=== PATIENT | female | born 1965 | race Caucasian/White ===

== ENCOUNTER 2017-04-01 18:02 | Emergency (ER) | payer SELFPAY ==
[~2017-04-01] VITALS: Ht 167.6 cm; Wt 56.0 kg
[~2017-04-01 18:02] MED LIST: HYDR25 PO; PRED20 PO
[2017-04-01 18:04] VITALS: BP 188/86; PULSE 88; RESP 18; TEMP 97.8; O2SAT 100
--- NOTE | 2017-04-01 18:53 | RADRPT ---
EXAM DATE/TIME: 04/01/2017 18:32 [facility] COMPARISON: No previous studies available for comparison. INDICATIONS : Right Shoulder pain, Post fall MEDICAL HISTORY : None. SURGICAL HISTORY : None. ENCOUNTER: Initial ACUITY: 1 day PAIN SCORE: 9/10 LOCATION: Right upper extremity FINDINGS: There are hypertrophic changes of mild severity at the acromioclavicular joint. There is severe narro wing of the glenohumeral joint with sclerosis on both sides of the joint, and impingement type change s at the humeral head greater tuberosity with subcortical cysts seen. CONCLUSION: Degenerative changes. Ricardo Ann MD on April 01, 2017 at 18:51 Board Certified Radiologist. This report was verified electronically.
--- NOTE | 2017-04-01 18:53 | RADRPT ---
EXAM DATE/TIME: 04/01/2017 18:28 [facility] COMPARISON: No previous studies available for comparison. INDICATIONS : Patient fell, complains of left hip pain MEDICAL HISTORY : None. SURGICAL HISTORY : None. ENCOUNTER: Initial ACUITY: 1 day PAIN SCORE: 9/10 LOCATION: Left pelvis FINDINGS: There is severe joint space narrowing of both hips. Subchondral sclerosis and subchondral cystic arciniega ges are noted. No fractures. Normal bone density. CONCLUSION: No acute disease. Ricardo Ann MD on April 01, 2017 at 18:51 Board Certified Radiologist. This report was verified electronically.
[2017-04-01] MEDS ORDERED: IBUP-232 PO (19:16)
[2017-04-01] MEDS ORDERED: LURA20TA PO (19:17)
--- NOTE | 2017-04-01 19:17 | PD ---
HPI . Fall Chief Complaint: Fall Time Seen by Provider: 18:57 Travel History International Travel<30 days: No Contact w/Intl Traveler<30days: No Traveled to known affect area: No History of Present Illness HPI Patient presents for evaluation of injury sustained in a trip and fall which occurred 2 days ago. She struck the right side of her face on a can that was on the floor. She also injured her right shoulder and her left hip. She states that the pain has gotten progressively worse and now rates it 10/10. Pain is exacerbated by movement. Pain has been unrelieved by Tylenol. PFSH Past Medical History ?: Not Past Surgical History Gynecologic Surgery: Yes (LAPAROSCOPY) Joint Replacement: Yes (LT MONTRELL REPAIR. FACILIAL HERNIA REPAIR LT CALF) Mastectomy: No (BREAST AUGMENTATION) Social History Alcohol Use: Yes (4 PACK/WEEK) Tobacco Use: Yes (1PPD) Substance Use: Yes (WEED) Allergies-Medications (Allergen,Severity, Reaction): Coded Allergies: penicillin G (Unverified Allergy, Severe, 04/01/17) codeine (Unverified Adverse Reaction, Severe, 04/01/17) Reported Meds & Prescriptions Reported Meds & Active Scripts Active Reported Latuda (Lurasidone) 20 Mg Tab 20 Mg PO DAILY Ibuprofen 600 Mg Tab 600 Mg PO Q6H PRN Review of Systems Except as stated in HPI: all other systems reviewed are Neg Physical Exam Narrative GENERAL: Awake and alert and in no acute distress. SKIN: Warm and dry. She has some bruising on the right side of her face. HEAD: Normocephalic/atraumatic. Right cheek tenderness. No deformity. Teeth occlude normally. EYES: Pupils are equal. Extraocular movements are intact. ENT: TMs shiny and hobson with good light reflexes. NECK: Normal range of motion. Supple. CARDIOVASCULAR: Regular rate and rhythm. RESPIRATORY: Nonlabored respirations. MUSCULOSKELETAL: Right shoulder is diffusely tender. Passive range of motion exacerbates her pain. She is distally neurovascularly intact. Left hip is also diffusely tender. She resists all range of motion of the left hip. She is distally neurovascularly intact. NEUROLOGICAL: Nonfocal. PSYCHIATRIC: Appropriate mood and affect. Data Data Last Documented VS Vital Signs Date Time Temp Pulse Resp B/P (MAP) Pulse Ox O2 Delivery O2 Flow Rate FiO2 04/01/17 18:04 97.8 88 18 188/86 (120) 100 Room Air Orders Orders Hip, Uni(Ap&Lat) W Ap Pelvis (04/01/17 18:10) Shoulder, Complete (>2vws) (04/01/17 18:10) Acetamin-Hydrocod 325-5 Mg ([place] 5-325 (04/01/17 19:30) Ed Discharge Order (04/01/17 19:17) MDM Medical Decision Making Medical Screen Exam Complete: Yes Emergency Medical Condition: Yes Differential Diagnosis Differential diagnosis of extremity trauma includes but is not limited to fracture, sprain or strain, dislocation, contusion Narrative Course This patient presents for the evaluation of injury sustained in a trip and fall 2 days ago. She has contusions of the right side of her face. She also has right shoulder and left hip pain. X-rays of the shoulder and hip were obtained and were independently viewed by me. Last Impressions Shoulder X-Ray 04/01/171809 Signed Impressions: Service Date/Time: Saturday, April 01, 2017 18:32 - CONCLUSION: Degenerative changes. Ricardo Ann MD Hip and Pelvis X-Ray 04/01/171809 Signed Impressions: Service Date/Time: Saturday, April 01, 2017 18:28 - CONCLUSION: No acute disease. Ricardo Ann MD I will give the patient a prescription for Ultram. Diagnosis Primary Impression: Facial contusion Qualified Codes: S00.83XA - Contusion of other part of head, initial encounter Additional Impressions: Shoulder injury Qualified Codes: S49.91XA - Unspecified injury of right shoulder and upper arm , initial encounter Hip injury Qualified Codes: S79.912A - Unspecified injury of left hip, initial encounter Patient Instructions: Facial Contusion (ED), General Instructions, Hip Pain (ED ), Narcotic given in the ED, Shoulder Pain (ED) Med/Other Pt SpecificInfo: Prescription(s) given Scripts Tramadol (Ultram) 50 Mg Tab 50 MG PO Q4H Y for PAIN, #12 TAB 0 Refills Prov: Awa Sanders MD 04/01/17 Disposition: 01 DISCHARGE HOME Condition: Stable Awa Sanders MD Apr 01, 2017 19:17
[2017-04-01] MEDS ORDERED: TRAM50 PO (19:19)
[2017-04-01] MEDS ORDERED: ACETAMINOPHEN/HYDROcodone 325 MG/5 MG TAB PO ONE (19:30)
== END 2017-04-01 19:42 | disposition home or self-care (01) ==
LOC: NEPD 18:02
DX: S00.83XA Contusion of other part of head, initial encounter (principal); S49.91XA Unspecified injury of right shoulder and upper arm, initial encounter; S79.912A Unspecified injury of left hip, initial encounter; F17.200 Nicotine dependence, unspecified, uncomplicated; W01.0XXA Fall on same level from slipping, tripping and stumbling without subsequent striking against object, initial encounter; Z88.0 Allergy status to penicillin; Z88.5 Allergy status to narcotic agent; Z79.899 Other long term (current) drug therapy
CPT/HCPCS: 73030; 73502; 99284

== ENCOUNTER 2017-06-14 02:48 | Inpatient (IN) | payer SELFPAY ==
[~2017-06-14] VITALS: Ht 170.2 cm; Wt 65.2 kg
[2017-06-14] VITALS (12 sets, daily range): BP systolic 133–162; BP diastolic 74–82; PULSE 95–114; RESP 17–22; TEMP 98.3–102.1; O2SAT 90–100
[~2017-06-14 02:48] MED LIST changes: -HYDR25 PO; +IBUP-232 PO; +LURA20TA PO; -PRED20 PO; +TRAM50 PO
[2017-06-14] MEDS ORDERED: SODIUM CHLOR 0.9% 1000 ML INJ 1,000 ML IV SCH (03:04)
--- NOTE | 2017-06-14 03:10 | PD ---
HPI Chief Complaint: Abdominal Pain Time Seen by Provider: 03:04 Travel History International Travel<30 days: No Contact w/Intl Traveler<30days: No Traveled to known affect area: No History of Present Illness HPI 52-year-old female presents to the emergency department by EMS transport from home for severe abdominal pain. Patient states she's had left lower quadrant abdominal pain for 3 days and then today has had increased severe intractable abdominal pain across her entire abdomen. Patient's had nausea vomiting without hematemesis coffee-ground emesis or melena. Patient states she attempted to give herself an enema and used a douching device and then shortly thereafter has had increasing abdominal pain. No reported bowel movement. PFSH Past Medical History Narrative Medical Arthritis depression joint surgery; exploratory laparotomy; tobacco use alcohol use substance use; nursing notes reviewed Arthritis: Yes Depression: Yes Tetanus Vaccination: Unknown Influenza Vaccination: No ?: Not Menopausal: Yes : 0 Past Surgical History Gynecologic Surgery: Yes (LAPAROSCOPY) Joint Replacement: Yes (LT MONTRELL REPAIR. FACILIAL HERNIA REPAIR LT CALF) Social History Alcohol Use: Yes (4 PACK/WEEK) Tobacco Use: Yes (1/2PPD) Substance Use: Yes (WEED) Allergies-Medications (Allergen,Severity, Reaction): Coded Allergies: penicillin G (Unverified Allergy, Severe, 04/01/17) codeine (Unverified Adverse Reaction, Severe, 04/01/17) Reported Meds & Prescriptions Reported Meds & Active Scripts Active Reported Ibuprofen 600 Mg Tab 600 Mg PO Q6H PRN Review of Systems Except as stated in HPI: all other systems reviewed are Neg Physical Exam Narrative GENERAL: Well-developed thin female in obvious distress no respiratory distress SKIN: Warm and dry. HEAD: Normocephalic. EYES: No scleral icterus. No injection or drainage. NECK: Supple, trachea midline. No JVD or lymphadenopathy. CARDIOVASCULAR: Regular rate and rhythm without murmurs, gallops, or rubs. RESPIRATORY: Breath sounds equal bilaterally. No accessory muscle use. GASTROINTESTINAL: Abdomen soft, diffusely tender with voluntary guarding and rebound, nondistended. MUSCULOSKELETAL: No cyanosis, or edema. BACK: Nontender without obvious deformity. No CVA tenderness. Data Data Last Documented VS Vital Signs Date Time Temp Pulse Resp B/P (MAP) Pulse Ox O2 Delivery O2 Flow Rate FiO2 06/14/17 05:08 108 154/82 (106) 06/14/17 03:49 22 99 Room Air 06/14/17 02:54 98.3 Orders Orders Complete Blood Count With Diff (06/14/17 03:04) Comprehensive Metabolic Panel (06/14/17 03:04) Lipase (06/14/17 03:04) Lactic Acid (06/14/17 03:04) Prothrombin Time / Inr (Pt) (06/14/17 03:04) Act Partial Throm Time (Ptt) (06/14/17 03:04) Urinalysis - C+S If Indicated (06/14/17 03:04) Ct Abd/Pel W Iv Contrast(Rout) (06/14/17 03:04) Iv Access Insert/Monitor (06/14/17 03:04) Ecg Monitoring (06/14/17 03:04) Oximetry (06/14/17 03:04) Ondansetron Inj (Zofran Inj) (06/14/17 03:15) Sodium Chlor 0.9% 1000 Ml Inj (Ns 1000 M (06/14/17 03:04) Sodium Chloride 0.9% Flush (Ns Flush) (06/14/17 03:15) Electrocardiogram (06/14/17 03:04) Chest, Single Ap (06/14/17 03:04) Hydromorphone Pf Inj (Dilaudid Pf Inj) (06/14/17 03:15) Blood Culture (06/14/17 03:06) Metronidazole 500 Mg Inj (Flagyl 500 Mg (06/14/17 03:15) Ciprofloxacin 400 Mg Premix (Cipro 400 M (06/14/17 03:15) Iohexol 350 Inj (Omnipaque 350 Inj) (06/14/17 04:50) Hydromorphone Pf Inj (Dilaudid Pf Inj) (06/14/17 05:15) Labs Laboratory Tests Test 06/14/17 03:19 06/14/17 03:29 06/14/17 04:05 06/14/17 05:24 White Blood Count 11.8 TH/MM3 Red Blood Count 4.85 MIL/MM3 Hemoglobin 12.7 GM/DL Hematocrit 38.2 % Mean Corpuscular Volume 78.8 FL Mean Corpuscular Hemoglobin 26.2 PG Mean Corpuscular Hemoglobin Concent 33.3 % Red Cell Distribution Width 17.1 % Platelet Count 523 TH/MM3 Mean Platelet Volume 6.3 FL Neutrophils (%) (Auto) 88.4 % Lymphocytes (%) (Auto) 6.9 % Monocytes (%) (Auto) 4.2 % Eosinophils (%) (Auto) 0.0 % Basophils (%) (Auto) 0.5 % Neutrophils # (Auto) 10.4 TH/MM3 Lymphocytes # (Auto) 0.8 TH/MM3 Monocytes # (Auto) 0.5 TH/MM3 Eosinophils # (Auto) 0.0 TH/MM3 Basophils # (Auto) 0.1 TH/MM3 CBC Comment DIFF FINAL Differential Comment Blood Urea Nitrogen 11 MG/DL Creatinine 1.14 MG/DL Random Glucose 151 MG/DL Total Protein 9.5 GM/DL Albumin 3.3 GM/DL Calcium Level 9.0 MG/DL Alkaline Phosphatase 172 U/L Aspartate Amino Transf (AST/SGOT) 25 U/L Alanine Aminotransferase (ALT/SGPT) 24 U/L Total Bilirubin 0.5 MG/DL Sodium Level 133 MEQ/L Potassium Level 3.7 MEQ/L Chloride Level 100 MEQ/L Carbon Dioxide Level 23.8 MEQ/L Anion Gap 9 MEQ/L Estimat Glomerular Filtration Rate 50 ML/MIN Lipase 76 U/L Lactic Acid Level 1.6 mmol/L Prothrombin Time 11.2 SEC Prothromb Time International Ratio 1.1 RATIO Activated Partial Thromboplast Time 29.6 SEC MDM Medical Decision Making Medical Screen Exam Complete: Yes Emergency Medical Condition: Yes Medical Record Reviewed: Yes Interpretation(s) Portable chest x-ray: No subdiaphragmatic free air EKG sinus tachycardia rate [address] elevation or injury pattern change noted Last Impressions Chest X-Ray 06/14/17 0304 Signed Impressions: Service Date/Time: June 03:09 - CONCLUSION: 1. Mild basilar atelectasis. No effusion or pneumothorax. Deniz Manriquez MD CBC & BMP Diagram 06/14/17 03:19 Total Protein 9.5 H, Albumin 3.3 L, Calcium Level 9.0, Alkaline Phosphatase 172 H, Aspartate Amino Transf (AST/SGOT) 25, Alanine Aminotransferase (ALT/SGPT) 24 , Total Bilirubin 0.5 Vital Signs Date Time Temp Pulse Resp B/P (MAP) Pulse Ox O2 Delivery O2 Flow Rate FiO2 06/14/17 05:08 108 154/82 (106) 06/14/17 03:49 104 22 162/78 (106) 99 Room Air 06/14/17 03:37 98 Room Air 06/14/17 02:54 98.3 110 22 135/75 (95) 100 lactic acid: 1.6 CT abd/pel: CONCLUSION: 1. Mild mural thickening and dilatation of multiple small bowel loops. Findings could represent an enteritis. There are air-fluid levels and some distal decompression. Cannot exclude a very low-grade partial obstruction. 2. The no evidence for diverticulitis. No obstructive uropathy. Appendix normal. Deniz Manriquez MD on June 14, 2017 at 5:14 Board Certified Radiologist. This report was verified electronically. Differential Diagnosis Abdominal pain, diverticulitis, abdominal abscess, viscus perforation, sepsis Narrative Course Patient placed on bottle feeder IV access obtained specimens collected and sent for resulting patient administered 1 L normal saline bolus Dilaudid 0.5 mg IV Zofran 4 mg IV stat upright chest x-ray to evaluate for subdiaphragmatic free air patient will be given Flagyl 500 mg IV times one dose as well as Cipro 40 mg IV times one dose patient is allergic to penicillin. Sepsis Criteria SIRS Criteria (2 or more): Heart rate over 90, RR > 20 or PaCO2 < 32 Physician Communication Physician Communication call placed to [facility] service Diagnosis Primary Impression: Enteritis Admitting Information Admitting Physician Requests: Observation Shantel Jean-Baptiste MD Jun 14, 2017 03:10
[2017-06-14] MEDS ORDERED: metroNIDAZOLE 500 MG INJ 100 ML IV ONE (03:15)
[2017-06-14] MEDS ORDERED: HYDROmorphone HCL PF 2 MG/ML VIAL IV PUSH ONE ×2 (03:15→05:15)
[2017-06-14] MEDS ORDERED: ONDANSETRON HCL 4 MG/2 ML VIAL IVP ONE (03:15)
[2017-06-14] MEDS ORDERED: SODIUM CHLORIDE 0.9% FLUSH 10 ML FLUSH IV FLUSH PRN ×2 (03:15→05:45)
[2017-06-14] MEDS ORDERED: CIPROFLOXACIN 400 MG PREMIX 200 ML IV ONE (03:15)
[2017-06-14 03:41] LABS: AUTOMATED NEUTROPHIL # 10.4 TH/MM3 (1.8-7.7); BASOPHIL # 0.1 TH/MM3 (0-0.2); BASOPHIL % 0.5 % (0.0-2.0); HEMATOCRIT 38.2 % (35.0-46.0); HEMOGLOBIN 12.7 GM/DL (11.6-15.3); LYMPH % 6.9 % (9.0-44.0); LYMPHOCYTE # 0.8 TH/MM3 (1.0-4.8); MEAN CELL VOLUME 78.8 FL (80.0-100.0); MEAN CORPUSCULAR HEMOGLOBIN 26.2 PG (27.0-34.0); MEAN CORPUSCULAR HGB CONC 33.3 % (32.0-36.0); MEAN PLATELET VOLUME 6.3 FL (7.0-11.0); MONO % 4.2 % (0.0-8.0); MONOCYTE # 0.5 TH/MM3 (0-0.9); NEUT % 88.4 % (16.0-70.0); PLATELET COUNT 523 TH/MM3 (150-450); RED BLOOD COUNT 4.85 MIL/MM3 (4.00-5.30); RED CELL DISTRIBUTION WIDTH 17.1 % (11.6-17.2); WHITE BLOOD COUNT 11.8 TH/MM3 (4.0-11.0)
--- NOTE | 2017-06-14 03:50 | RADRPT ---
EXAM DATE/TIME: 06/14/2017 03:09 [facility] COMPARISON: No previous studies available for comparison. INDICATIONS : Lower chest pain. MEDICAL HISTORY : None. SURGICAL HISTORY : None. ENCOUNTER: Initial ACUITY: 3 days PAIN SCORE: 1/10 LOCATION: Bilateral lower chest FINDINGS: A single view of the chest demonstrates the lungs to be symmetrically aerated without evidence of mas s, infiltrate or effusion. Mild basilar atelectasis. The cardiomediastinal contours are unremarkable. Osseous structures are intact. CONCLUSION: 1. Mild basilar atelectasis. No effusion or pneumothorax. Deniz Manriquez MD on June 14, 2017 at 3:46 Board Certified Radiologist. This report was verified electronically.
[2017-06-14 04:04] LABS: ALBUMIN 3.3 GM/DL (3.4-5.0); ALT (GPT) 24 U/L (10-53); AST (GOT) 25 U/L (15-37); BICARBONATE 23.8 MEQ/L (21.0-32.0); BLOOD UREA NITROGEN 11 MG/DL (7-18); CHLORIDE 100 MEQ/L (98-107); CREATININE 1.14 MG/DL (0.50-1.00); GLOMERULAR FILTRATION RATE 50 ML/MIN (>89); GLUCOSE,RANDOM 151 MG/DL (74-106); SODIUM (NA) 133 MEQ/L (136-145)
[2017-06-14 04:07] LABS: ALKALINE PHOSPHATASE 172 U/L (45-117); TOTAL BILIRUBIN ADULT 0.5 MG/DL (0.2-1.0); TOTAL PROTEIN 9.5 GM/DL (6.4-8.2)
[2017-06-14 04:35] LABS: INTERNATIONAL NORMALIZED RATIO 1.1 RATIO; PROTHROMBIN TIME - PATIENT 11.2 SEC (9.8-11.6)
[2017-06-14] MEDS ORDERED: IOHEXOL 350 MG/ML 10 ML VIAL (for RAD DIAG) IVCONTRAST ONE (04:50)
--- NOTE | 2017-06-14 05:24 | RADRPT ---
EXAM DATE/TIME: 06/14/2017 04:43 [facility] COMPARISON: No previous studies available for comparison. INDICATIONS : Left lower quadrant pain. Constipation. IV CONTRAST: 100 cc Omnipaque 350 (iohexol) IV ORAL CONTRAST: No oral contrast ingested. RADIATION DOSE: 9.99 CTDIvol (mGy) MEDICAL HISTORY : None SURGICAL HISTORY : None. ENCOUNTER: Initial ACUITY: 2 days PAIN SCALE: 10/10 LOCATION: Left lower quadrant TECHNIQUE: Volumetric scanning of the abdomen and pelvis was performed. Using automated exposure control and ad justment of the mA and/or kV according to patient size, radiation dose was kept as low as reasonably achievable to obtain optimal diagnostic quality images. DICOM format image data is available electro nically for review and comparison. FINDINGS: There is dependent density at the bases, right and left, probably atelectasis. Bilateral breast impla nts with intracapsular rupture on the right. No acute findings in the liver, spleen, adrenals, kidneys or pancreas. No calcified gallstones or donovan iary ductal dilatation. The is mild mural thickening of numerous small bowel loops mild dilatation. There is a slight caliber change distally. No acute bony abnormalities. Moderate to severe osteoarthritis of the hips. Previous healed left L3 t ransverse process fracture. Slight reversal of normal lumbar lordosis. CONCLUSION: 1. Mild mural thickening and dilatation of multiple small bowel loops. Findings could represent an en teritis. There are air-fluid levels and some distal decompression. Cannot exclude a very low-grade pa rtial obstruction. 2. The no evidence for diverticulitis. No obstructive uropathy. Appendix normal. Deniz Manriquez MD on June 14, 2017 at 5:14 Board Certified Radiologist. This report was verified electronically.
[2017-06-14] MEDS: SODIUM CHLOR 0.9% 1000 ML INJ 1,000 ML IV SCH ×3 (05:39→22:40)
[2017-06-14 05:41] LABS: BILIRUBIN, URINE NEG (NEG); BLOOD, URINE SMALL (NEG); GLUCOSE,URINE NEG (NEG); HYALINE CAST, URINE 1 /lpf (RARE); KETONE, URINE NEG (NEG); MUCUS URINE FEW /lpf (OCC); NITRITE,URINE POS (NEG); PH, URINE 6.5 (5.0-8.5); SQUAMOUS EPITHELIAL CELL URINE 1 /hpf (0-5); URINE COLOR YELLOW (YELLW/STRAW); URINE LEUKOCYTE ESTERASE LARGE (NEG)
[2017-06-14] MEDS ORDERED: ACETAMINOPHEN 325 MG TAB PO PRN (05:45)
[2017-06-14] MEDS ORDERED: MAGNESIUM HYDROXIDE SUSP 30 ML CUP PO PRN (05:45)
[2017-06-14] MEDS ORDERED: LACTULOSE SYRUP 20 GM/30 ML CUP PO PRN (05:45)
[2017-06-14] MEDS ORDERED: SENNOSIDES 8.6 MG TAB PO PRN (05:45)
[2017-06-14] MEDS ORDERED: BISACODYL 10 MG SUPP RECTAL PRN (05:45)
[2017-06-14] MEDS ORDERED: NALOXONE HCL 0.4 MG/ML AMP IV PUSH PRN (05:45)
[2017-06-14] MEDS ORDERED: LORazepam 2 MG TAB PO PRN (06:15)
[2017-06-14] MEDS ORDERED: LORazepam 2 MG/ML VIAL IV PUSH PRN ×2 (06:15)
[2017-06-14] MEDS ORDERED: FLUMAZENIL 0.5 MG/5 ML VIAL IV PUSH PRN (06:15)
--- NOTE | 2017-06-14 06:15 | HHI.HP ---
HPI Service [facility] Primary Care Physician No Primary Care Physician Admission Diagnosis acute enteritis; early partial sbo Diagnoses: Travel History International Travel<30 Days: No Contact w/Intl Traveler <30 Da: No Traveled to Known Affected Are: No History of Present Illness 52-year-old homeless female with a past medical history significant for alcohol and drug abuse presents to the emergency department for evaluation of abdominal pain. The patient reports a 3 day history of constipation. She states she woke this morning with left lower quadrant pain and requested her brother bring her a fleets enema for her constipation. She reports that the sore was out of fleets enemas so he brought her a vinegar and water douche instead. The patient used this as an enema after which she expelled a "brick pinecone" with multiple meredith. She denies any blood mixed in with the stool. Denies current jelly stools. Recent black, tarry stools. She has a history of a laparoscopic surgery to rule out endometriosis in 1991. No other abdominal surgeries. She continues to report exquisite pain, 10/10 that has now moved to her left and right upper quadrants. She denies fever/chills, chest pain, diaphoresis, nausea/vomiting. Review of Systems Except as stated in HPI: all other systems reviewed are Neg Past Family Social History Past Medical History Osteoarthritis Past Surgical History Laparoscopic surgery to rule out endometriosis Breast augmentation ACL repair Reported Medications Reported Meds & Active Scripts Active Reported Ibuprofen 600 Mg Tab 600 Mg PO Q6H PRN Allergies: Coded Allergies: penicillin G (Unverified Allergy, Severe, 04/01/17) codeine (Unverified Adverse Reaction, Severe, 04/01/17) Family History Mother with diabetes mellitus, father with CHF, both . Social History Smokes approximately a half a pack per day. Drinks alcohol "as often as possible" which usually is 1-2 beers daily. Positive marijuana. Positive crack cocaine. Denies opiate use. Physical Exam Vital Signs Vital Signs Date Time Temp Pulse Resp B/P (MAP) Pulse Ox O2 Delivery O2 Flow Rate FiO2 06/14/17 05:08 108 154/82 (106) 06/14/17 03:49 104 22 162/78 (106) 99 Room Air 06/14/17 03:37 98 Room Air 06/14/17 02:54 98.3 110 22 135/75 (95) 100 Physical Exam GENERAL: Thin, female lying in bed. Disheveled and unkempt. SKIN: No rashes, ecchymoses or lesions. Cool and dry. HEAD: Atraumatic. Normocephalic. No temporal or scalp tenderness. EYES: Pupils equal round and reactive. Extraocular motions intact. No scleral icterus. No injection or drainage. ENT: Nose without bleeding, purulent drainage or septal hematoma. Throat without erythema, tonsillar hypertrophy or exudate. Uvula midline. Airway patent. NECK: Trachea midline. No JVD or lymphadenopathy. Supple, nontender, no meningeal signs. CARDIOVASCULAR: Regular rate and rhythm without murmurs, gallops, or rubs. RESPIRATORY: Clear to auscultation. Breath sounds equal bilaterally. No wheezes , rales, or rhonchi. GASTROINTESTINAL: Abdomen soft, nondistended. Patient reports exquisite tenderness to palpation in all 4 quadrants however all abdominal muscles flexed during palpation. No hepato-splenomegaly, or palpable masses. Voluntary guarding. MUSCULOSKELETAL: Extremities without clubbing, cyanosis, or edema. No joint tenderness, effusion, or edema noted. No calf tenderness. NEUROLOGICAL: Awake and alert. Cranial nerves II through XII intact. Motor and sensory grossly within normal limits. Normal speech. Laboratory Laboratory Tests Test 06/14/17 03:19 06/14/17 03:29 06/14/17 04:05 06/14/17 05:24 White Blood Count 11.8 Red Blood Count 4.85 Hemoglobin 12.7 Hematocrit 38.2 Mean Corpuscular Volume 78.8 Mean Corpuscular Hemoglobin 26.2 Mean Corpuscular Hemoglobin Concent 33.3 Red Cell Distribution Width 17.1 Platelet Count 523 Mean Platelet Volume 6.3 Neutrophils (%) (Auto) 88.4 Lymphocytes (%) (Auto) 6.9 Monocytes (%) (Auto) 4.2 Eosinophils (%) (Auto) 0.0 Basophils (%) (Auto) 0.5 Neutrophils # (Auto) 10.4 Lymphocytes # (Auto) 0.8 Monocytes # (Auto) 0.5 Eosinophils # (Auto) 0.0 Basophils # (Auto) 0.1 CBC Comment DIFF FINAL Differential Comment Blood Urea Nitrogen 11 Creatinine 1.14 Random Glucose 151 Total Protein 9.5 Albumin 3.3 Calcium Level 9.0 Alkaline Phosphatase 172 Aspartate Amino Transf (AST/SGOT) 25 Alanine Aminotransferase (ALT/SGPT) 24 Total Bilirubin 0.5 Sodium Level 133 Potassium Level 3.7 Chloride Level 100 Carbon Dioxide Level 23.8 Anion Gap 9 Estimat Glomerular Filtration Rate 50 Lipase 76 Lactic Acid Level 1.6 Prothrombin Time 11.2 Prothromb Time International Ratio 1.1 Activated Partial Thromboplast Time 29.6 Urine Color YELLOW Urine Turbidity CLEAR Urine pH 6.5 Urine Specific [place] 1.039 Urine Protein TRACE Urine Glucose (UA) NEG Urine Ketones NEG Urine Occult Blood SMALL Urine Nitrite POS Urine Bilirubin NEG Urine Urobilinogen LESS THAN 2.0 Urine Leukocyte Esterase LARGE Urine RBC 2 Urine WBC 4 Urine Squamous Epithelial Cells 1 Urine Hyaline Casts 1 Urine Mucus FEW Microscopic Urinalysis Comment CULTURE INDICATED Date/Time Source Procedure Growth Status 06/14/17 03:35 Blood Peripheral Aerobic Blood Culture Pending Received 06/14/17 03:35 Blood Peripheral Anaerobic Blood Culture Pending Received 06/14/17 05:24 Urine Clean Catch Urine Culture Pending Received Result Diagram: 06/14/1731806/14/17318 Caprini VTE Risk Assessment Caprini VTE Risk Assessment: No/Low Risk (score <= 1) Caprini Risk Assessment Model Point Value = 1 Point Value = 2 Point Value = 3 Point Value = 5 Age 41-60 Minor surgery BMI > 25 kg/m2 Swollen legs Varicose veins or History of unexplained or recurrent spontaneous Oral contraceptives or hormone replacement Sepsis (< 1 month) Serious lung disease, including pneumonia (< 1 month) Abnormal pulmonary function Acute myocardial infarction Congestive heart failure (< 1 month) History of inflammatory bowel disease Medical patient at bed rest Age 61-74 Arthroscopic surgery Major open surgery (> 45 min) Laparoscopic surgery (> 45 min) Malignancy Confined to bed (> 72 hours) Immobilizing plaster cast Central venous access Age >= 75 History of VTE Family history of VTE Factor V Leiden Prothrombin [id number] Lupus anticoagulant Anticardiolipin antibodies Elevated serum homocysteine Heparin-induced thrombocytopenia Other congenital or acquired thrombophilia Stroke (< 1 month) Elective arthroplasty Hip, pelvis, or leg fracture Acute spinal cord injury (< 1 month) Prophylaxis Regimen Total Risk Factor Score Risk Level Prophylaxis Regimen 0-1 Low Early ambulation 2 Moderate Order ONE of the following: *Sequential Compression Device (SCD) *Heparin 5000 units SQ BID 3-4 Higher Order ONE of the following medications: *Heparin 5000 units SQ TID *Enoxaparin/Lovenox 40 mg SQ daily (WT < 150 kg, CrCl > 30 mL/min) *Enoxaparin/Lovenox 30 mg SQ daily (WT < 150 kg, CrCl > 10-29 mL/min) *Enoxaparin/Lovenox 30 mg SQ BID (WT < 150 kg, CrCl > 30 mL/min) AND/OR *Sequential Compression Device (SCD) 5 or more Highest Order ONE of the following medications: *Heparin 5000 units SQ TID (Preferred with Epidurals) *Enoxaparin/Lovenox 40 mg SQ daily (WT < 150 kg, CrCl > 30 mL/min) *Enoxaparin/Lovenox 30 mg SQ daily (WT < 150 kg, CrCl > 10-29 mL/min) *Enoxaparin/Lovenox 30 mg SQ BID (WT < 150 kg, CrCl > 30 mL/min) AND *Sequential Compression Device (SCD) Assessment and Plan Assessment and Plan Assessment/plan: 1. Intractable abdominal pain CT of the abdomen/pelvis significant for mild mucosal thickening and dilation of multiple small bowel loops, suggestive of enteritis. There are air-fluid levels and some distal decompression. Cannot exclude a very low-grade partial obstruction. Dilaudid for pain Nothing by mouth IV fluid hydration 2. YOBANY Creatinine 1.14, baseline unknown IV fluid hydration Monitor renal function 3. Alcohol abuse/polysubstance abuse/tobacco abuse Cessation counseling provided [facility] protocol FEN NPO Electrolytes: monitor and replete prn NS at 100 cc/hr Lois Skinner MD Jun 14, 2017 06:15
[2017-06-14] MEDS: HYDROmorphone HCL PF 1 MG/ML VIAL IV PUSH PRN ×4 (07:50→19:59)
[2017-06-14] MEDS: SODIUM CHLORIDE 0.9% FLUSH 10 ML FLUSH IV FLUSH SCH ×2 (07:50→19:59)
--- NOTE | 2017-06-14 08:10 | EKG ---
Date Performed: 06/14/2017 Time Performed: 03:18:20 PTAGE: 52 years EKG: SINUS TACHYCARDIA POSSIBLE RIGHT ATRIAL ENLARGEMENT LEFT ATRIAL ENLARGEMENT BORDERLINE LEFT AXIS DEVIATION POSSIBLE RIGHT VENTRICULAR CONDUCTION DELAY POSSIBLE LEFT VENTRICULAR HYPERTROPHY NON SPECIFIC T-WAVE ABNORMALITY ABNORMAL ECG NO PREVIOUS TRACING DOCTOR: Justo Starkey Interpretating Date/Time 06/14/2017 08:08:52
[2017-06-14] MEDS ORDERED: THIAMINE HCL 100 MG TAB PO SCH (09:00)
[2017-06-14] MEDS ORDERED: MULTIVITAMINS/MINERALS THERAPEUTIC TAB PO SCH (09:00)
[2017-06-14] MEDS ORDERED: FOLIC ACID 1 MG TAB PO SCH (09:00)
[2017-06-14] MEDS ORDERED: PANTOPRAZOLE SOD 20 MG DELAYED RELEASE TAB PO SCH (10:00)
[2017-06-14] MEDS: CIPROFLOXACIN 400 MG PREMIX 200 ML IV SCH (13:58)
[2017-06-14] MEDS: LORazepam 1 MG TAB PO PRN ×2 (15:29→20:16)
[2017-06-14] MEDS: metroNIDAZOLE 500 MG INJ 100 ML IV SCH ×2 (15:32→22:40)
--- NOTE | 2017-06-14 16:21 | HHI.PR ---
Subjective Remarks Follow-up visit abdominal pain, constipation, small bowel obstruction, polysubstance abuse. Patient seen and examined today lying in bed. Reports she has severe pain and has never had this much pain in the past. Reports pain 10 over 10 when it occurs, sharp, throbbing, achy, does not know what aggravates the pain. Pain is being relieved by pain medication. Patient reports she still did not have any bowel movements. Denies nausea, vomiting. Reported by nurse earlier today having fevers. Discuss with patient restarting IV antibiotics for now. We will provide bowel regimen. Denies shortness of breath or dyspnea. Denies chest pain, palpitations, headaches, dizziness. Denies dysuria. Patient admits to using marijuana almost every day and crack cocaine every Sunday Objective Vitals Vital Signs Date Time Temp Pulse Resp B/P (MAP) Pulse Ox O2 Delivery O2 Flow Rate FiO2 06/14/17 15:00 95 06/14/17 13:11 102 06/14/17 11:59 102.1 114 20 134/81 (98) 90 06/14/17 09:56 101 06/14/17 09:06 99.5 112 20 148/75 (99) 91 06/14/17 05:08 108 154/82 (106) 06/14/17 03:49 104 22 162/78 (106) 99 Room Air 06/14/17 03:37 98 Room Air 06/14/17 02:54 98.3 110 22 135/75 (95) 100 I/O 06/13/17 06/13/17 06/13/17 06/14/17 06/14/17 06/14/17 07:00 15:00 23:00 07:00 15:00 23:00 Intake Total 1100 ml 200 ml Balance 1100 ml 200 ml Intake IV Total 1100 ml 200 ml Result Diagram: 06/14/1731806/14/17318 Imaging Last Impressions Chest X-Ray 06/14/17303 Signed Impressions: Service Date/Time: June 03:09 - CONCLUSION: 1. Mild basilar atelectasis. No effusion or pneumothorax. Deniz Manriquez MD Abdomen/Pelvis CT 06/14/17303 Signed Impressions: Service Date/Time: June 04:43 - CONCLUSION: 1. Mild mural thickening and dilatation of multiple small bowel loops. Findings could represent an enteritis. There are air-fluid levels and some distal decompression. Cannot exclude a very low-grade partial obstruction. 2. The no evidence for diverticulitis. No obstructive uropathy. Appendix normal. Deniz Manriquez MD Objective Remarks GENERAL: This is a well-nourished, well-developed patient, in no apparent distress. SKIN: Warm and dry. HEENT: Normocephalic. Pupils equal round and reactive. Nose without bleeding. Airway patent. NECK: Trachea midline. No JVD. Supple. CARDIOVASCULAR: Regular rate and rhythm without murmurs, gallops, or rubs. RESPIRATORY: Clear to auscultation. Breath sounds equal bilaterally. No wheezes , rales, or rhonchi. GASTROINTESTINAL: Abdomen soft. Bowel Sounds hypoactive. Tenderness to palpation throughout. MUSCULOSKELETAL: Extremities without clubbing, cyanosis, or edema. NEUROLOGICAL: Awake and alert. Oriented to time, place, person. No focal neuro deficit. Moves all extremities. Normal speech. A/P Problem List: (1) Constipation ICD Code: K59.00 - Constipation, unspecified (2) Enteritis ICD Code: K52.9 - Noninfective gastroenteritis and colitis, unspecified Status: Acute Assessment and Plan Patient is a 52-year-old female with past medical history significant for alcohol and drug abuse presents to the emergency department for evaluation of abdominal pain. Enteritis, possible low-grade partial obstruction Intractable abdominal pain - CT of the abdomen/pelvis significant for mild mucosal thickening and dilation of multiple small bowel loops, suggestive of enteritis. There are air- fluid levels and some distal decompression. Cannot exclude a very low-grade partial obstruction. - Dilaudid for pain - Nothing by mouth - IV fluid hydration - She was given Cipro, Flagyl in the ED. Developed fever 102.1, we'll continue Cipro Flagyl for now. Follow-up blood cultures. Lactic acid 1.6. - Lactulose, MOM 1 dose now. Needs to be on bowel regimen daily. - If patient continues to have abdominal pain, unable to move bowels will consult GI tomorrow. YOBANY - Creatinine 1.14, baseline unknown - IV fluid hydration - Monitor renal function Alcohol abuse/polysubstance abuse/tobacco abuse - Cessation counseling provided - [facility] protocol DVT prop heparin subcutaneous Nudalo-Frankieti,Iszenn BUCKLE COVERER Jun 14, 2017 16:21
[2017-06-14] MEDS: HEPARIN SODIUM - SQ 10,000 UNITS/ML VIAL SQ SCH (19:58)
[2017-06-14] MEDS: PHENOL 1.4% SOLN 180 ML BTL OROPHARYNG PRN (22:40)
[2017-06-15 00:02] VITALS: PULSE 106
[2017-06-15] MEDS: LORazepam 1 MG TAB PO PRN (00:26)
[2017-06-15] MEDS: HYDROmorphone HCL PF 1 MG/ML VIAL IV PUSH PRN ×5 (00:27→17:43)
[2017-06-15] MEDS: PHENOL 1.4% SOLN 180 ML BTL OROPHARYNG PRN (01:54)
[2017-06-15] MEDS: CIPROFLOXACIN 400 MG PREMIX 200 ML IV SCH ×2 (02:54→15:52)
[2017-06-15 03:41] VITALS: BP 111/58; PULSE 106; RESP 17; TEMP 99.4; O2SAT 95
[2017-06-15 05:29] LABS: AUTOMATED NEUTROPHIL # 5.1 TH/MM3 (1.8-7.7); BASOPHIL % 0.5 % (0.0-2.0); EOSINOPHIL % 0.2 % (0.0-4.0); HEMATOCRIT 32.5 % (35.0-46.0); LYMPH % 13.1 % (9.0-44.0); LYMPHOCYTE # 0.8 TH/MM3 (1.0-4.8); MEAN CELL VOLUME 79.3 FL (80.0-100.0); MEAN CORPUSCULAR HEMOGLOBIN 26.8 PG (27.0-34.0); MEAN CORPUSCULAR HGB CONC 33.9 % (32.0-36.0); MEAN PLATELET VOLUME 6.2 FL (7.0-11.0); MONO % 6.9 % (0.0-8.0); MONOCYTE # 0.4 TH/MM3 (0-0.9); NEUT % 79.3 % (16.0-70.0); PLATELET COUNT 374 TH/MM3 (150-450); WHITE BLOOD COUNT 6.4 TH/MM3 (4.0-11.0)
[2017-06-15 05:41] LABS: BICARBONATE 23.5 MEQ/L (21.0-32.0); CREATININE 0.83 MG/DL (0.50-1.00)
[2017-06-15] MEDS: metroNIDAZOLE 500 MG INJ 100 ML IV SCH (06:14)
[2017-06-15] MEDS: ONDANSETRON HCL 4 MG/2 ML VIAL IVP PRN (06:17)
[2017-06-15 07:26] VITALS: BP 161/86; PULSE 88; RESP 18; TEMP 97.3; O2SAT 93
[2017-06-15] MEDS ORDERED: POTASSIUM CHLORIDE 10 MEQ CONTROLLED RELEASE TAB PO ONE (07:45)
[2017-06-15] MEDS ORDERED: POTASSIUM CHLOR 20 MEQ PREMIX 100 ML IV ONE ×2 (07:45→10:00)
--- NOTE | 2017-06-15 08:55 | RADRPT ---
EXAM DATE/TIME: 06/15/2017 08:35 [place] COMPARISON: CT ABDOMEN & PELVIS W CONTRAST, June 14, 2017, 4:43. INDICATIONS : Abdominal pain & distention. MEDICAL HISTORY : Hypertension. SURGICAL HISTORY : None. ENCOUNTER: Subsequent ACUITY: 2 days PAIN SCORE: 10/10 LOCATION: abdomen FINDINGS: Supine view of the abdomen was performed. The abdominal bowel gas pattern is normal. No abnormal ma sses, calcifications, or organomegaly is seen. The osseous structures are unremarkable. CONCLUSION: Dilated bowel loops, more prominent than previous study. August Cook MD on June 15, 2017 at 8:51 Board Certified Radiologist. This report was verified electronically.
--- NOTE | 2017-06-15 08:56 | HHI.PR ---
Subjective Remarks Follow-up visit abdominal pain, constipation, possible partial small bowel obstruction, polysubstance abuse. Patient seen and examined today lying in bed. Continues to complain of abdominal pain. States "I vomited large amount of air." Reports difficulty moving with pain. States "my arthritis is also hurting me." States pain is 10/10, all over her body aggravated by movement. Reports no BM. Reports SOB. Denies chest pain, palpitations, headaches, dizziness. Denies fevers, chills. Objective Vitals Vital Signs Date Time Temp Pulse Resp B/P (MAP) Pulse Ox O2 Delivery O2 Flow Rate FiO2 06/15/17 07:26 97.3 88 18 161/86 (111) 93 06/15/17 05:10 18 06/15/17 03:41 99.4 106 17 111/58 (75) 95 06/15/17 00:02 106 06/14/17 23:10 100.2 107 17 139/74 (95) 94 06/14/17 19:59 110 06/14/17 19:42 98.4 111 17 133/78 (96) 93 06/14/17 15:00 95 06/14/17 13:11 102 06/14/17 11:59 102.1 114 20 134/81 (98) 90 06/14/17 09:56 101 06/14/17 09:06 99.5 112 20 148/75 (99) 91 I/O 06/14/17 06/14/17 06/14/17 06/15/17 06/15/17 06/15/17 07:00 15:00 23:00 07:00 15:00 23:00 Intake Total 1100 ml 800 ml Balance 1100 ml 800 ml Intake IV Total 1100 ml 800 ml Result Diagram: 06/15/17 0430 06/15/17 0430 Imaging Last Impressions Chest X-Ray 06/14/17303 Signed Impressions: Service Date/Time: June 03:09 - CONCLUSION: 1. Mild basilar atelectasis. No effusion or pneumothorax. Deniz Manriquez MD Abdomen/Pelvis CT 06/14/17303 Signed Impressions: Service Date/Time: June 04:43 - CONCLUSION: 1. Mild mural thickening and dilatation of multiple small bowel loops. Findings could represent an enteritis. There are air-fluid levels and some distal decompression. Cannot exclude a very low-grade partial obstruction. 2. The no evidence for diverticulitis. No obstructive uropathy. Appendix normal. Deniz Manriquez MD Objective Remarks GENERAL: This is a well-nourished, well-developed patient, in no apparent distress. SKIN: Warm and dry. HEENT: Normocephalic. Pupils equal round and reactive. Nose without bleeding. Airway patent. NECK: Trachea midline. No JVD. Supple. CARDIOVASCULAR: Regular rate and rhythm without murmurs, gallops, or rubs. RESPIRATORY: Clear to auscultation. Breath sounds equal bilaterally. No wheezes , rales, or rhonchi. GASTROINTESTINAL: Abdomen soft. Bowel Sounds hypoactive. Tenderness to palpation throughout. MUSCULOSKELETAL: Extremities without clubbing, cyanosis, or edema. NEUROLOGICAL: Awake and alert. Oriented to time, place, person. No focal neuro deficit. Moves all extremities. Normal speech. A/P Problem List: (1) Constipation ICD Code: K59.00 - Constipation, unspecified (2) Enteritis ICD Code: K52.9 - Noninfective gastroenteritis and colitis, unspecified Status: Acute Assessment and Plan Patient is a 52-year-old female with past medical history significant for alcohol and drug abuse presents to the emergency department for evaluation of abdominal pain. Enteritis, possible low-grade partial obstruction Intractable abdominal pain - CT of the abdomen/pelvis significant for mild mucosal thickening and dilation of multiple small bowel loops, suggestive of enteritis. There are air- fluid levels and some distal decompression. Cannot exclude a very low-grade partial obstruction. - Dilaudid for pain - Nothing by mouth, ice chips occ - IV fluid hydration - She was given Cipro, Flagyl in the ED. Developed fever 102.1 -->100.2 - Continue Cipro Flagyl for now. Follow-up blood cultures. Lactic acid 1.6. - Lactulose, MOM 1 dose without results. Lactulose, mag citrate, and enema now. - Abd KUB more prominent dilated bowel loop - place NGT - Gen Surgery consult for further evaluation and recommendation. YOBANY - Creatinine 1.14, baseline unknown - IV fluid hydration - Monitor renal function - Improved KITCHEN MANAGER 0.83 Alcohol abuse/polysubstance abuse/tobacco abuse - Cessation counseling provided - [facility] protocol - Appears to have withdrawal components in her presentation today. Increase HR, anxiety, irritability, generalized complaints DVT prop heparin subcutaneous Discharge Planning Not ready for DC. Pending diagnostics and consult. Sabina Kwon Jun 15, 2017 8:56 am
[2017-06-15] MEDS: HEPARIN SODIUM - SQ 10,000 UNITS/ML VIAL SQ SCH ×2 (09:00→20:16)
[2017-06-15] MEDS: SODIUM CHLORIDE 0.9% FLUSH 10 ML FLUSH IV FLUSH SCH ×2 (09:21→20:15)
[2017-06-15] MEDS ORDERED: LACTULOSE SYRUP 20 GM/30 ML CUP PO ONE (10:00)
[2017-06-15] MEDS ORDERED: SOD PHOSPHATE/SOD BIPHOSPHATE (ADULT) ENEMA 133ML RECTAL ONE ×2 (10:00→15:45)
[2017-06-15] MEDS ORDERED: MAGNESIUM CITRATE SOLN 300 ML BTL PO ONE (10:00)
[2017-06-15 11:11] VITALS: BP 133/70; PULSE 98; RESP 18; TEMP 99.2; O2SAT 99
[2017-06-15] MEDS: SODIUM CHLOR 0.9% 1000 ML INJ 1,000 ML IV SCH ×2 (11:37→20:18)
[2017-06-15 11:54] LABS: AUTOMATED NEUTROPHIL # 3.5 TH/MM3 (1.8-7.7); BASOPHIL % 0.6 % (0.0-2.0); EOSINOPHIL % 0.2 % (0.0-4.0); HEMATOCRIT 31.1 % (35.0-46.0); HEMOGLOBIN 10.3 GM/DL (11.6-15.3); LYMPH % 14.1 % (9.0-44.0); LYMPHOCYTE # 0.6 TH/MM3 (1.0-4.8); MEAN CELL VOLUME 79.4 FL (80.0-100.0); MEAN CORPUSCULAR HEMOGLOBIN 26.4 PG (27.0-34.0); MEAN CORPUSCULAR HGB CONC 33.2 % (32.0-36.0); MEAN PLATELET VOLUME 5.8 FL (7.0-11.0); MONO % 6.6 % (0.0-8.0); MONOCYTE # 0.3 TH/MM3 (0-0.9); NEUT % 78.5 % (16.0-70.0); PLATELET COUNT 320 TH/MM3 (150-450); RED BLOOD COUNT 3.92 MIL/MM3 (4.00-5.30); RED CELL DISTRIBUTION WIDTH 16.5 % (11.6-17.2); WHITE BLOOD COUNT 4.5 TH/MM3 (4.0-11.0)
--- NOTE | 2017-06-15 11:54 | PD.CONS ---
cc: Deniz Gant MD [facility] Service CONSULTATION NOTE FOR SURGICAL ATTENDING, DR. DENIZ GANT General Surgery Consult Requested By Demetra BRANCH Reason for Consult Enteritis; possible small bowel obstruction Primary Care Physician No Primary Care Physician History of Present Illness This is a 52-year-old female with no past medical history. The patient comes to the Emergency Room about three days ago with abdominal pain and constipation. Per report she used vinegar as an enema and had 3 small "pellet size" stools. She denies any sick contacts. She denies any recent traveling. A CT abdomen and pelvis was obtained which showed mild mucosal thickening and dilatation of small bowel loops which was suggestive of enteritis. An abdominal x-ray was obtained today which showed increased dilatation of small bowel loops. A nasogastric tube was attempted but unsuccessful. A General Surgery consultation has been requested. Review of Systems Constitutional: DENIES: Fatigue, Change in appetite Endocrine: DENIES: Polydipsia, Polyuria, Polyphagia Eyes: DENIES: Eye inflammation Ears, nose, mouth, throat: DENIES: Hearing loss Respiratory: DENIES: Apneas, Cough Cardiovascular: DENIES: Chest pain Gastrointestinal: COMPLAINS OF: Abdominal pain, Constipation, Nausea, DENIES: Diarrhea Genitourinary: DENIES: Urinary frequency Musculoskeletal: DENIES: Joint pain Integumentary: DENIES: Abnormal pigmentation Hematologic/lymphatic: DENIES: Bruising Immunologic/allergic: DENIES: Eczema Neurologic: DENIES: Abnormal gait Psychiatric: DENIES: Confusion, Mood changes Past Family Social History Past Medical History None Past Surgical History Laparoscopy to rule out endometriosis Breast augmentation ACL repair Reported Medications None Allergies: Coded Allergies: penicillin G (Unverified Allergy, Severe, 04/01/17) codeine (Unverified Adverse Reaction, Severe, 04/01/17) Active Ordered Medications Current Medications Medications (Trade) Dose Ordered Sig/Kathy Route Start Time Stop Time Status Last Admin Sodium Chloride 1,000 ml @ 100 mls/hr Q10H IV 06/14/17 05:39 06/14/17 22:40 (NS Flush) 2 ml UNSCH PRN IV FLUSH 06/14/17 05:45 (NS Flush) 2 ml BID IV FLUSH 06/14/17 09:00 06/15/17 09:21 (Tylenol) 650 mg Q4H PRN PO 06/14/17 05:45 06/14/17 12:05 (Zofran Inj) 4 mg Q6H PRN IVP 06/14/17 05:45 06/15/17 06:17 (Narcan Inj) 0.4 mg UNSCH PRN IV PUSH 06/14/17 05:45 (Milk Of Magnesia Liq) 30 ml Q12H PRN PO 06/14/17 05:45 Future Hold 06/14/17 20:16 (Senokot) 17.2 mg Q12H PRN PO 06/14/17 05:45 (Dulcolax Supp) 10 mg DAILY PRN RECTAL 06/14/17 05:45 (Lactulose Liq) 30 ml DAILY PRN PO 06/14/17 05:45 06/14/17 16:04 (Dilaudid Pf Inj) 0.5 mg Q4H PRN IV PUSH 06/14/17 05:45 06/15/17 09:19 (Folate) 1 mg DAILY PO 06/14/17 09:00 06/19/17 08:59 Future Hold 06/14/17 07:50 (Vitamin B1) 100 mg DAILY PO 06/14/17 09:00 Future Hold 06/14/17 07:50 (Theragran M Tab) 1 tab DAILY PO 06/14/17 09:00 06/19/17 08:59 Future Hold 06/14/17 07:50 (Romazicon Inj) 0.2 mg Q1M PRN IV PUSH 06/14/17 06:15 (Ativan) 1 mg Q4H PRN PO 06/14/17 06:15 06/15/17 00:26 (Ativan Inj) 1 mg Q4H PRN IV PUSH 06/14/17 06:15 (Ativan) 2 mg Q2H PRN PO 06/14/17 06:15 (Ativan Inj) 2 mg Q2H PRN IV PUSH 06/14/17 06:15 (Ativan Inj) 2 mg Q1H PRN IV PUSH 06/14/17 06:15 (Ativan Inj) 2 mg Q15M PRN IV PUSH 06/14/17 06:15 (Protonix) 20 mg DAILY PO 06/14/17 10:00 Future Hold 06/14/17 10:56 Ciprofloxacin/ Dextrose 200 ml @ 200 mls/hr Q12H IV 06/14/17 14:00 06/15/17 02:54 Metronidazole 100 ml @ 100 mls/hr Q8H IV 06/14/17 15:00 06/15/17 06:14 (Heparin Inj) 5,000 units Q12HR SQ 06/14/17 21:00 06/15/17 09:00 (Chloraseptic Calera) 2 spray Q2H PRN OROPHARYNG 06/14/17 21:30 06/15/17 01:54 Potassium Chloride 100 ml @ 50 mls/hr ONCE ONCE IV 06/15/17 10:00 06/15/17 11:59 Family History Noncontributory Social History Positive tobacco use--approximately 1 pack per day Positive EtOH use---4-5 beers daily; last had on Sunday Positive illicit drug use---cocaine (nasally) Physical Exam Vital Signs Vital Signs Date Time Temp Pulse Resp B/P (MAP) Pulse Ox O2 Delivery O2 Flow Rate FiO2 06/15/17 11:11 99.2 98 18 133/70 (91) 99 06/15/17 07:26 97.3 88 18 161/86 (111) 93 06/15/17 05:10 18 06/15/17 03:41 99.4 106 17 111/58 (75) 95 06/15/17 00:02 106 06/14/17 23:10 100.2 107 17 139/74 (95) 94 06/14/17 19:59 110 06/14/17 19:42 98.4 111 17 133/78 (96) 93 06/14/17 15:00 95 06/14/17 13:11 102 06/14/17 11:59 102.1 114 20 134/81 (98) 90 Physical Exam GENERAL: 52 year old female with poor hygiene resting in bed. SKIN: Warm and dry. HEAD: Atraumatic. Normocephalic. EYES: Pupils equal and round. No scleral icterus. No injection or drainage. ENT: No nasal bleeding or discharge. Mucous membranes pink and moist. NECK: Trachea midline. CARDIOVASCULAR: Regular rate and rhythm. RESPIRATORY: No accessory muscle use. Clear to auscultation. Breath sounds equal bilaterally. GASTROINTESTINAL: Abdomen distended; tender to palpation. No visible hernias. MUSCULOSKELETAL: Extremities without clubbing, cyanosis, or edema. No obvious deformities. NEUROLOGICAL: Awake and alert. No obvious cranial nerve deficits. Motor grossly within normal limits. Five out of 5 muscle strength in the arms and legs. Normal speech. PSYCHIATRIC: Appropriate mood and affect; insight and judgment normal. Laboratory Laboratory Tests Test 06/15/17 04:30 White Blood Count 6.4 Red Blood Count 4.10 Hemoglobin 11.0 Hematocrit 32.5 Mean Corpuscular Volume 79.3 Mean Corpuscular Hemoglobin 26.8 Mean Corpuscular Hemoglobin Concent 33.9 Red Cell Distribution Width 17.0 Platelet Count 374 Mean Platelet Volume 6.2 Neutrophils (%) (Auto) 79.3 Lymphocytes (%) (Auto) 13.1 Monocytes (%) (Auto) 6.9 Eosinophils (%) (Auto) 0.2 Basophils (%) (Auto) 0.5 Neutrophils # (Auto) 5.1 Lymphocytes # (Auto) 0.8 Monocytes # (Auto) 0.4 Eosinophils # (Auto) 0.0 Basophils # (Auto) 0.0 CBC Comment DIFF FINAL Differential Comment Blood Urea Nitrogen 14 Creatinine 0.83 Random Glucose 141 Calcium Level 9.0 Sodium Level 130 Potassium Level 3.1 Chloride Level 98 Carbon Dioxide Level 23.5 Anion Gap 9 Estimat Glomerular Filtration Rate 72 Date/Time Source Procedure Growth Status 06/14/17 03:35 Blood Peripheral Aerobic Blood Culture - Preliminary NO GROWTH IN 1 DAY Resulted 06/14/17 03:35 Blood Peripheral Anaerobic Blood Culture - Preliminary NO GROWTH IN 1 DAY Resulted 06/14/17 05:24 Urine Clean Catch Urine Culture Pending Received Result Diagram: 06/15/1742906/15/17 043 Imaging Last 48 hours Impressions Abdomen X-Ray 06/15/17 0600 Signed Impressions: Service Date/Time: Thursday, June 15, 2017 08:35 - CONCLUSION: Dilated bowel loops, more prominent than previous study. August Cook MD Chest X-Ray 06/14/17303 Signed Impressions: Service Date/Time: June 03:09 - CONCLUSION: 1. Mild basilar atelectasis. No effusion or pneumothorax. Deniz Manriquez MD Abdomen/Pelvis CT 06/14/17303 Signed Impressions: Service Date/Time: June 04:43 - CONCLUSION: 1. Mild mural thickening and dilatation of multiple small bowel loops. Findings could represent an enteritis. There are air-fluid levels and some distal decompression. Cannot exclude a very low-grade partial obstruction. 2. The no evidence for diverticulitis. No obstructive uropathy. Appendix normal. Deniz Manriquez MD Assessment and Plan Assessment and Plan 52 year old female with abdominal pain; possible SBO -Repeat labs are pending; We will follow up -Recommend NGT if patient agrees -IVF -Pain control -NPO -Thank you for this consult; We will continue to follow Discussed Condition With Dr. Alfreda Brewer Attending Statement NOTE FOR SURGICAL ATTENDING, DR. DENIZ GANT Patient examined Abdomen sore and distended No rebound or guarding CT scan reviewed Patient has ruptured right breast implant and a very small left inguinal hernia Some changes in the small bowel Replace potassium and electrolytes Repeat films in the morning Consider small bowel follow-through series I agree with above assessment and plan. The exam, history, and the medical decision-making described in the above note were completed with the assistance of the mid-level provider. I reviewed and agree with the findings presented. I attest that I had a [id number] encounter with the patient on the same day, and personally performed and documented my assessment and findings in the medical record. The following services were provided during this hospital visit: Chart data review, vital sign assessments/reviewing monitor data Review of consultations notes if present. Medication orders/review and/or management Ordering and/or reviewing lab tests Ordering and/or interpreting/reviewing x-rays and/or diagnostic studies Care of the patient and discussion of the patient with the care team Documentation time To help prompt me to consider important information that might be impacting today's encounter and assessment, information from prior notes written by myself or my colleagues may have been "brought forward/copy and pasted" into today's note. Halley Clements Jun 15, 2017 11:54 Deniz Gant MD Jun 15, 2017 16:33
[2017-06-15 12:22] LABS: BICARBONATE 24.6 MEQ/L (21.0-32.0); CALCIUM 8.4 MG/DL (8.5-10.1); CREATININE 0.75 MG/DL (0.50-1.00)
[2017-06-15 15:08] VITALS: BP 143/76; PULSE 101; RESP 18; TEMP 98.6; O2SAT 93
[2017-06-15] MEDS ORDERED: KETOROLAC TROMETHAMINE 60 MG/2 ML (IM) VIAL IM ONE (15:45)
[2017-06-15] MEDS ORDERED: BISACODYL 10 MG SUPP RECTAL ONE (15:45)
[2017-06-15] MEDS: LORazepam 2 MG/ML VIAL IV PUSH PRN ×2 (15:50→20:20)
[2017-06-15] MEDS: metroNIDAZOLE 500 MG TAB PO SCH (16:00)
[2017-06-15 20:00] VITALS: BP 142/80; PULSE 107; RESP 18; TEMP 99.3; O2SAT 94
[2017-06-16] VITALS: BP 165/78; PULSE 116; RESP 18; TEMP 98.3; O2SAT 93
[2017-06-16] MEDS: LORazepam 2 MG/ML VIAL IV PUSH PRN ×2 (00:43→06:20)
[2017-06-16] MEDS: CIPROFLOXACIN 400 MG PREMIX 200 ML IV SCH ×2 (02:04→12:47)
[2017-06-16] MEDS: HYDROmorphone HCL PF 2 MG/ML VIAL IV PUSH PRN ×2 (02:12→06:39)
[2017-06-16 07:25] LABS: BICARBONATE 22.6 MEQ/L (21.0-32.0); CALCIUM 8.2 MG/DL (8.5-10.1); CREATININE 0.67 MG/DL (0.50-1.00)
[2017-06-16 08:00] VITALS: BP 143/77; PULSE 107; RESP 19; TEMP 99; O2SAT 90
[2017-06-16] MEDS: SODIUM CHLORIDE 0.9% FLUSH 10 ML FLUSH IV FLUSH SCH ×2 (09:00→21:00)
--- NOTE | 2017-06-16 09:57 | HHI.PR ---
cc: Karyn Prather MD Subjective Subjective Notes DAILY PROGRESS NOTE FOR SURGICAL ATTENDING, DR. KARYN PRATHER Getting small bowel follow-through series Complains of some abdominal pain Seems somewhat sedate Objective Vitals/I&O Vital Signs Date Time Temp Pulse Resp B/P (MAP) Pulse Ox O2 Delivery O2 Flow Rate FiO2 06/16/17 08:00 99.0 107 19 143/77 (99) 90 06/14/17 03:49 Room Air Labs Laboratory Tests Test 06/15/17 11:41 06/16/17 05:34 White Blood Count 4.5 Red Blood Count 3.92 Hemoglobin 10.3 Hematocrit 31.1 Mean Corpuscular Volume 79.4 Mean Corpuscular Hemoglobin 26.4 Mean Corpuscular Hemoglobin Concent 33.2 Red Cell Distribution Width 16.5 Platelet Count 320 Mean Platelet Volume 5.8 Neutrophils (%) (Auto) 78.5 Lymphocytes (%) (Auto) 14.1 Monocytes (%) (Auto) 6.6 Eosinophils (%) (Auto) 0.2 Basophils (%) (Auto) 0.6 Neutrophils # (Auto) 3.5 Lymphocytes # (Auto) 0.6 Monocytes # (Auto) 0.3 Eosinophils # (Auto) 0.0 Basophils # (Auto) 0.0 CBC Comment DIFF FINAL Differential Comment Blood Urea Nitrogen 15 11 Creatinine 0.75 0.67 Random Glucose 104 84 Calcium Level 8.4 8.2 Sodium Level 134 134 Potassium Level 3.6 3.4 Chloride Level 101 103 Carbon Dioxide Level 24.6 22.6 Anion Gap 8 8 Estimat Glomerular Filtration Rate 81 92 Lactic Acid Level 0.9 Magnesium Level 2.0 Date/Time Source Procedure Growth Status 06/14/17 03:35 Blood Peripheral Aerobic Blood Culture - Preliminary NO GROWTH IN 1 DAY Resulted 06/14/17 03:35 Blood Peripheral Anaerobic Blood Culture - Preliminary NO GROWTH IN 1 DAY Resulted 06/14/17 05:24 Urine Clean Catch Urine Culture - Final Escherichia Coli Complete Radiology Last 48 hours Impressions Abdomen X-Ray 06/15/17 0600 Signed Impressions: Service Date/Time: Thursday, June 15, 2017 08:35 - CONCLUSION: Dilated bowel loops, more prominent than previous study. August Cook MD Chest X-Ray 06/14/17 0304 Signed Impressions: Service Date/Time: June 03:09 - CONCLUSION: 1. Mild basilar atelectasis. No effusion or pneumothorax. Karyn Manriquez MD Abdomen/Pelvis CT 06/14/17303 Signed Impressions: Service Date/Time: June 04:43 - CONCLUSION: 1. Mild mural thickening and dilatation of multiple small bowel loops. Findings could represent an enteritis. There are air-fluid levels and some distal decompression. Cannot exclude a very low-grade partial obstruction. 2. The no evidence for diverticulitis. No obstructive uropathy. Appendix normal. Karyn Manriquez MD A/P Problem List: (1) Escherichia coli urinary tract infection ICD Codes: N39.0 - Urinary tract infection, site not specified; B96.20 - Unspecified Escherichia coli [E. coli] as the cause of diseases classified elsewhere Status: Acute (2) Anemia ICD Codes: D64.9 - Anemia, unspecified Status: Acute (3) Enteritis ICD Codes: K52.9 - Noninfective gastroenteritis and colitis, unspecified Status: Acute (4) Constipation ICD Codes: K59.00 - Constipation, unspecified Status: Chronic (5) Abdominal pain ICD Codes: R10.9 - Unspecified abdominal pain (6) Abnormal CT of the abdomen ICD Codes: R93.5 - Abnormal findings on diagnostic imaging of other abdominal regions, including retroperitoneum Status: Acute Assessment and Plan 52-year-old female history of illicit drug use with abdominal pain constipation. She also has a Escherichia coli urinary tract infection that I suspect is contributing to her ileus and abdominal discomfort. Upper GI in process at this time appears to be flowing through it awaiting final images At this time I would treat her electrolyte abnormalities Treat her urinary tract infection Follow-up final results of upper GI Attending Statement NOTE FOR SURGICAL ATTENDING, DR. KARYN PRATHER I I attest that I had a [id number] encounter with the patient on the same day, and personally performed and documented my assessment and findings in the medical record. The following services were provided during this hospital visit: Chart data review, vital sign assessments/reviewing monitor data Review of consultations notes if present. Medication orders/review and/or management Ordering and/or reviewing lab tests Ordering and/or interpreting/reviewing x-rays and/or diagnostic studies Care of the patient and discussion of the patient with the care team Documentation time To help prompt me to consider important information that might be impacting today's encounter and assessment, information from prior notes written by myself or my colleagues may have been "brought forward/copy and pasted" into today's note. Problem Qualifiers (1) Constipation: Qualified Codes: K59.03 - Drug induced constipation Karyn Prather MD Jun 16, 2017 09:57
--- NOTE | 2017-06-16 11:07 | HHI.PR ---
Subjective Remarks Patient appearing very sedated. She complains of nausea and abdominal pain. Objective Vitals Vital Signs Date Time Temp Pulse Resp B/P (MAP) Pulse Ox O2 Delivery O2 Flow Rate FiO2 06/16/17 08:00 99.0 107 19 143/77 (99) 90 06/16/17 00:00 98.3 116 18 165/78 (107) 93 06/15/17 20:00 99.3 107 18 142/80 (100) 94 06/15/17 15:08 98.6 101 18 143/76 (98) 93 06/15/17 11:11 99.2 98 18 133/70 (91) 99 I/O 06/15/17 06/15/17 06/15/17 06/16/17 06/16/17 06/16/17 07:00 15:00 23:00 07:00 15:00 23:00 Intake Total 1000 ml 200 ml Balance 1000 ml 200 ml Intake IV Total 1000 ml 200 ml # Voids 1 2 Result Diagram: 06/15/17 1141 06/16/17 0534 Objective Remarks GENERAL: Patient appear much older than stated age, sitting up in the bed with eyes closed. Appears sedated. CARDIOVASCULAR: Normal rate and regular rhythm without murmurs, gallops, or rubs. RESPIRATORY: Breath sounds equal and clear to auscultation bilaterally. GASTROINTESTINAL: Abdomen soft, endorsed tenderness to palpation. Normal active bowel sounds. MUSCULOSKELETAL: Extremities without cyanosis, or edema. NEURO: Appear drowsy. Moves all ext x4 PSYCH: Easily irritable. A/P Problem List: (1) Constipation ICD Code: K59.00 - Constipation, unspecified Status: Chronic (2) Enteritis ICD Code: K52.9 - Noninfective gastroenteritis and colitis, unspecified Status: Acute Assessment and Plan 52-year-old female with past medical history significant for alcohol and drug abuse presents to the emergency department for evaluation of abdominal pain. Enteritis, possible low-grade partial obstruction Intractable abdominal pain - CT of the abdomen/pelvis significant for mild mucosal thickening and dilation of multiple small bowel loops, suggestive of enteritis. There are air- fluid levels and some distal decompression. Cannot exclude a very low-grade partial obstruction. -Appear to sedated today. Discontinue Dilaudid. Lortab as needed and low- dose morphine for breakthrough only. - Nothing by mouth, ice chips occ - IV fluid hydration - Continue Cipro, Flagyl for now. Follow-up blood cultures. - Lactulose -Small bowel series done today. Results pending. Patient refused NG tube. - Appreciate general surgery input. Escherichia coli UTI: May be contributing to above. - Continue antibiotics. YOBANY -Resolved with IV fluid. - Monitor renal function Alcohol abuse/polysubstance abuse/tobacco abuse - Cessation counseling provided - [facility] protocol -Withdrawal symptoms started yesterday. Increase HR, anxiety, irritability, generalized complaints DVT prop heparin subcutaneous Problem Qualifiers (1) Constipation: Qualified Codes: K59.03 - Drug induced constipation Pattie Taylor MD Jun 16, 2017 11:07
[2017-06-16] MEDS: HEPARIN SODIUM - SQ 10,000 UNITS/ML VIAL SQ SCH ×2 (11:17→21:57)
[2017-06-16] MEDS: metroNIDAZOLE 500 MG TAB PO SCH ×3 (11:17→18:34)
[2017-06-16 12:00] VITALS: BP 170/92; PULSE 114; RESP 17; TEMP 97.4; O2SAT 92
[2017-06-16] MEDS ORDERED: DIATRIZOATE MEGLUM/DIATRIZOATE SOD 120 ML BTL (for RAD DIAG) PO ONE (12:15)
--- NOTE | 2017-06-16 12:25 | RADRPT ---
EXAM DATE/TIME: 06/16/2017 08:43 [place] COMPARISON: CT ABDOMEN & PELVIS W CONTRAST, June 14, 2017, 4:43. INDICATIONS : Obstruction. FLUORO TIME: 0 minutes IMAGE COUNT: 11 CONTRAST: [facility] IMAGING TIME(S): 15 min, 30 min, 45 min, 1 hr, 1.5 hrs, 3 hrs MEDICAL HISTORY : Hypertension. SURGICAL HISTORY : None. ENCOUNTER: Initial ACUITY: 3 days PAIN SCORE: 10/10 LOCATION: abdomen. FINDINGS: Preliminary film is unremarkable. The stomach is grossly unremarkable. Examination of the small bowel demonstrates wall thickening with jejunum. Multiple dilated jejunal becky wel loops. No intraluminal filling defects are identified. Small bowel transit time is slow at 180 m inutes. Fluoroscopy of the abdomen and terminal ileum was not obtained. Patient had artery return to the floor. CONCLUSION: Wall thickening and dilated jejunal bowel loops. No obstruction. August Cook MD on June 16, 2017 at 12:19 Board Certified Radiologist. This report was verified electronically.
[2017-06-16] MEDS: ONDANSETRON HCL 4 MG/2 ML VIAL IVP PRN (13:12)
[2017-06-16] MEDS ORDERED: cloNIDine HCL 0.1 MG TAB PO PRN (13:30)
[2017-06-16] MEDS ORDERED: MORPHINE SULFATE 2 MG/ML INJ IM PRN (13:30)
[2017-06-16] MEDS ORDERED: POTASSIUM CHLORIDE 10 MEQ CONTROLLED RELEASE TAB PO ONE (13:45)
[2017-06-16 16:00] VITALS: BP 157/79; PULSE 107; RESP 17; TEMP 98.9; O2SAT 97
[2017-06-16] MEDS: SODIUM CHLOR 0.9% 1000 ML INJ 1,000 ML IV SCH ×2 (17:39→19:11)
[2017-06-16 20:00] VITALS: BP 169/94; PULSE 106; RESP 20; TEMP 98.8; O2SAT 95
[2017-06-16] MEDS: ACETAMINOPHEN/HYDROcodone 325 MG/5 MG TAB PO PRN (21:55)
[2017-06-17] VITALS: BP 169/89; PULSE 98; RESP 20; TEMP 99.4; O2SAT 95
[2017-06-17] MEDS: CIPROFLOXACIN 400 MG PREMIX 200 ML IV SCH (02:09)
[2017-06-17] MEDS: metroNIDAZOLE 500 MG TAB PO SCH ×2 (02:09→10:13)
[2017-06-17] MEDS: SODIUM CHLOR 0.9% 1000 ML INJ 1,000 ML IV SCH (05:43)
[2017-06-17] MEDS: ACETAMINOPHEN/HYDROcodone 325 MG/5 MG TAB PO PRN ×2 (05:43→10:12)
[2017-06-17 06:38] LABS: HEMATOCRIT 31.3 % (35.0-46.0); HEMOGLOBIN 10.5 GM/DL (11.6-15.3); MEAN CELL VOLUME 80.5 FL (80.0-100.0); MEAN CORPUSCULAR HEMOGLOBIN 26.9 PG (27.0-34.0); MEAN CORPUSCULAR HGB CONC 33.4 % (32.0-36.0); MEAN PLATELET VOLUME 6.1 FL (7.0-11.0); PLATELET COUNT 416 TH/MM3 (150-450); RED BLOOD COUNT 3.89 MIL/MM3 (4.00-5.30); WHITE BLOOD COUNT 6.5 TH/MM3 (4.0-11.0)
[2017-06-17 07:03] LABS: BICARBONATE 20.7 MEQ/L (21.0-32.0); CALCIUM 8.4 MG/DL (8.5-10.1); CREATININE 0.7 MG/DL (0.50-1.00)
[2017-06-17 08:00] VITALS: BP 150/83; PULSE 107; RESP 18; TEMP 98.5; O2SAT 94
[2017-06-17] MEDS: HEPARIN SODIUM - SQ 10,000 UNITS/ML VIAL SQ SCH (10:13)
[2017-06-17] MEDS: SODIUM CHLORIDE 0.9% FLUSH 10 ML FLUSH IV FLUSH SCH (10:14)
--- NOTE | 2017-06-17 10:15 | HHI.PR ---
Subjective Subjective Notes Had multiple BMs after small bowel series- no obstruction. Objective Vitals/I&O Vital Signs Date Time Temp Pulse Resp B/P (MAP) Pulse Ox O2 Delivery O2 Flow Rate FiO2 06/17/17 08:00 98.5 107 18 150/83 (105) 94 06/14/17 03:49 Room Air Labs Laboratory Tests Test 06/17/17 05:44 White Blood Count 6.5 Red Blood Count 3.89 Hemoglobin 10.5 Hematocrit 31.3 Mean Corpuscular Volume 80.5 Mean Corpuscular Hemoglobin 26.9 Mean Corpuscular Hemoglobin Concent 33.4 Red Cell Distribution Width 17.0 Platelet Count 416 Mean Platelet Volume 6.1 Blood Urea Nitrogen 17 Creatinine 0.70 Random Glucose 92 Calcium Level 8.4 Sodium Level 136 Potassium Level 3.5 Chloride Level 107 Carbon Dioxide Level 20.7 Anion Gap 8 Estimat Glomerular Filtration Rate 88 Date/Time Source Procedure Growth Status 06/14/17 03:35 Blood Peripheral Aerobic Blood Culture - Preliminary NO GROWTH IN 2 DAYS Resulted 06/14/17 03:35 Blood Peripheral Anaerobic Blood Culture - Preliminary NO GROWTH IN 2 DAYS Resulted 06/14/17 05:24 Urine Clean Catch Urine Culture - Final Escherichia Coli Complete Radiology Last 48 hours Impressions Abdomen X-Ray 06/15/17 0600 Signed Impressions: Service Date/Time: Thursday, June 15, 2017 08:35 - CONCLUSION: Dilated bowel loops, more prominent than previous study. August Cook MD Chest X-Ray 06/14/17303 Signed Impressions: Service Date/Time: June 03:09 - CONCLUSION: 1. Mild basilar atelectasis. No effusion or pneumothorax. Deniz Manriquez MD Abdomen/Pelvis CT 06/14/17303 Signed Impressions: Service Date/Time: June 04:43 - CONCLUSION: 1. Mild mural thickening and dilatation of multiple small bowel loops. Findings could represent an enteritis. There are air-fluid levels and some distal decompression. Cannot exclude a very low-grade partial obstruction. 2. The no evidence for diverticulitis. No obstructive uropathy. Appendix normal. Deniz Manriquez MD Abdomen: Other (mildly distended. Non tender. BS active.) A/P Problem List: (1) Escherichia coli urinary tract infection ICD Codes: N39.0 - Urinary tract infection, site not specified; B96.20 - Unspecified Escherichia coli [E. coli] as the cause of diseases classified elsewhere Status: Acute (2) Anemia ICD Codes: D64.9 - Anemia, unspecified Status: Acute (3) Enteritis ICD Codes: K52.9 - Noninfective gastroenteritis and colitis, unspecified Status: Acute (4) Constipation ICD Codes: K59.00 - Constipation, unspecified Status: Chronic (5) Abdominal pain ICD Codes: R10.9 - Unspecified abdominal pain (6) Abnormal CT of the abdomen ICD Codes: R93.5 - Abnormal findings on diagnostic imaging of other abdominal regions, including retroperitoneum Status: Acute Assessment and Plan Ileus due to UTI- ecoli. resolving. Agree with diet. No indication for surgery. ill sign off. Problem Qualifiers (1) Constipation: Qualified Codes: K59.03 - Drug induced constipation Ramo Woo MD Jun 17, 2017 10:15
[2017-06-17] MEDS ORDERED: CIPR-9 PO ×2 (11:16→13:50)
[2017-06-17] MEDS ORDERED: METR-1 PO ×2 (11:16→13:50)
[2017-06-17] MEDS ORDERED: AMLO5TAB2 PO ×2 (11:16→13:50)
--- NOTE | 2017-06-17 11:16 | HHI.DS ---
Discharge Summary Admission Date Jun 15, 2017 at 15:50 Discharge Date: Jun 17, 2017 Admitting Diagnosis acute enteritis; early partial sbo (1) Constipation ICD Code: K59.00 - Constipation, unspecified Status: Chronic (2) Enteritis ICD Code: K52.9 - Noninfective gastroenteritis and colitis, unspecified Status: Acute Procedures None Brief History - From Admission History of present illness from the admitting physician 52-year-old homeless female with a past medical history significant for alcohol and drug abuse presents to the emergency department for evaluation of abdominal pain. The patient reports a 3 day history of constipation. She states she woke this morning with left lower quadrant pain and requested her brother bring her a fleets enema for her constipation. She reports that the sore was out of fleets enemas so he brought her a vinegar and water douche instead. The patient used this as an enema after which she expelled a "brick pinecone" with multiple meredith. She denies any blood mixed in with the stool. Denies current jelly stools. Recent black, tarry stools. She has a history of a laparoscopic surgery to rule out endometriosis in 1991. No other abdominal surgeries. She continues to report exquisite pain, 10/10 that has now moved to her left and right upper quadrants. She denies fever/chills, chest pain, diaphoresis, nausea/vomiting. CBC/BMP: 06/17/17 0544 06/17/17 0544 Significant Findings Laboratory Tests Test 06/15/17 04:30 06/15/17 11:41 06/16/17 05:34 06/17/17 05:44 Hemoglobin 11.0 GM/DL (11.6-15.3) 10.3 GM/DL (11.6-15.3) 10.5 GM/DL (11.6-15.3) Hematocrit 32.5 % (35.0-46.0) 31.1 % (35.0-46.0) 31.3 % (35.0-46.0) Mean Corpuscular Volume 79.3 FL (80.0-100.0) 79.4 FL (80.0-100.0) Mean Corpuscular Hemoglobin 26.8 PG (27.0-34.0) 26.4 PG (27.0-34.0) 26.9 PG (27.0-34.0) Mean Platelet Volume 6.2 FL (7.0-11.0) 5.8 FL (7.0-11.0) 6.1 FL (7.0-11.0) Neutrophils (%) (Auto) 79.3 % (16.0-70.0) 78.5 % (16.0-70.0) Lymphocytes # (Auto) 0.8 TH/MM3 (1.0-4.8) 0.6 TH/MM3 (1.0-4.8) Random Glucose 141 MG/DL (74-106) Sodium Level 130 MEQ/L (136-145) 134 MEQ/L (136-145) 134 MEQ/L (136-145) Potassium Level 3.1 MEQ/L (3.5-5.1) 3.4 MEQ/L (3.5-5.1) Estimat Glomerular Filtration Rate 72 ML/MIN (>89) 81 ML/MIN (>89) 88 ML/MIN (>89) Red Blood Count 3.92 MIL/MM3 (4.00-5.30) 3.89 MIL/MM3 (4.00-5.30) Calcium Level 8.4 MG/DL (8.5-10.1) 8.2 MG/DL (8.5-10.1) 8.4 MG/DL (8.5-10.1) Carbon Dioxide Level 20.7 MEQ/L (21.0-32.0) Imaging Last Impressions Small Bowel X-Ray 06/16/17599 Signed Impressions: Service Date/Time: Friday, June 16, 2017 08:43 - CONCLUSION: Wall thickening and dilated jejunal bowel loops. No obstruction. August Cook MD Abdomen X-Ray 06/15/17 06 Signed Impressions: Service Date/Time: Thursday, June 15, 2017 08:35 - CONCLUSION: Dilated bowel loops, more prominent than previous study. August Cook MD Chest X-Ray 06/14/17 0304 Signed Impressions: Service Date/Time: June 03:09 - CONCLUSION: 1. Mild basilar atelectasis. No effusion or pneumothorax. Deniz Manriquez MD Abdomen/Pelvis CT 06/14/17 0304 Signed Impressions: Service Date/Time: June 04:43 - CONCLUSION: 1. Mild mural thickening and dilatation of multiple small bowel loops. Findings could represent an enteritis. There are air-fluid levels and some distal decompression. Cannot exclude a very low-grade partial obstruction. 2. The no evidence for diverticulitis. No obstructive uropathy. Appendix normal. Deniz Manriquez MD PE at Discharge GENERAL: Patient appear much older than stated age, sitting up in the bed with eyes closed. Appears sedated. CARDIOVASCULAR: Normal rate and regular rhythm without murmurs, gallops, or rubs. RESPIRATORY: Breath sounds equal and clear to auscultation bilaterally. GASTROINTESTINAL: Abdomen soft, endorsed tenderness to palpation. Normal active bowel sounds. MUSCULOSKELETAL: Extremities without cyanosis, or edema. NEURO: Appear drowsy. Moves all ext x4 PSYCH: Easily irritable. Pt update on day of discharge Patient reports she is feeling much better. She is eager to eat and go home. Abdominal pain. Much resolved. No nausea. Hospital Course 52-year-old female with past medical history significant for alcohol and drug abuse presents to the emergency department for evaluation of abdominal pain. Workup revealed UTI. Abdominal CT revealed mild mucosal thickening and dilation of multiple small bowel loops, suggestive of enteritis. There are air- fluid levels and some distal decompression. Cannot exclude a very low-grade partial obstruction. Patient underwent small bowel series which showed some bowel wall thickening but no obstruction. The patient was followed by general surgery who advised conservative management. Urine culture grew Escherichia coli. Patient condition improved and she is discharged home on antibiotics to complete the course of treatment. [place] noting she also presented with a [employer] likely secondary to dehydration. This resolved with IV fluid. Alcohol abuse/polysubstance abuse including cocaine/tobacco abuse: Cessation counseling provided. Pt Condition on Discharge: Good Discharge Disposition: Discharge Home Discharge Time: <= 30 minutes Discharge Instructions DIET: Follow Instructions for: Heart Healthy Diet Activities you can perform: Regular-No Restrictions New Medications: Amlodipine (Amlodipine) 5 Mg Tab 5 MG PO DAILY for Blood Pressure Management, #30 TAB 0 Refills Ciprofloxacin (Cipro) 500 Mg Tab 500 MG PO BID for Infection, #14 TAB 0 Refills Metronidazole (Flagyl) 500 Mg Tab 500 MG PO Q8H, #21 TAB Continued Medications: Ibuprofen (Ibuprofen) 600 Mg Tab 600 MG PO Q6H PRN for Pain/Inflammation, #40 TAB 0 Refills Pattie Taylor MD Jun 17, 2017 11:16
[2017-06-17 12:00] VITALS: BP 147/72; PULSE 78; RESP 20; TEMP 97.5; O2SAT 94
== END 2017-06-17 14:05 | disposition home or self-care (01) | DRG 389 ==
LOC: NEPC 02:48 → NEDA 05:37 → NEPFCDU 06:44 → OBSVTOIN 06-15 15:50 → N07A 06-15 19:05
PROVIDERS: ADMIT Family Medicine; ATTEND Family Medicine
DX: K56.7 Ileus, unspecified (principal); N17.9 Acute kidney failure, unspecified; E87.8 Other disorders of electrolyte and fluid balance, not elsewhere classified; N39.0 Urinary tract infection, site not specified; F19.239 Other psychoactive substance dependence with withdrawal, unspecified; T85.49XA Other mechanical complication of breast prosthesis and implant, initial encounter; B96.20 Unspecified Escherichia coli [E. coli] as the cause of diseases classified elsewhere; K52.9 Noninfective gastroenteritis and colitis, unspecified; F17.210 Nicotine dependence, cigarettes, uncomplicated; F10.10 Alcohol abuse, uncomplicated; F12.90 Cannabis use, unspecified, uncomplicated; D64.9 Anemia, unspecified; Z59.0 Homelessness; K40.90 Unilateral inguinal hernia, without obstruction or gangrene, not specified as recurrent
CPT/HCPCS: 71045; 74018; 74177; 74250; 80048; 80053; 81001; 83605; 83690; 83735; 84702; 85025; 85027; 85610; 85730; 87040; 87077; 87086; 87186; 93005; 96361; 96365; 96366; 96375; 96376; G0378; J0744; J1170; J1644; J2060; J2405; J3480; J7030; Q9963; Q9967

== ENCOUNTER 2017-07-03 13:38 | Emergency (ER) | payer SELFPAY ==
[~2017-07-03] VITALS: Ht 167.6 cm; Wt 57.0 kg
[~2017-07-03 13:38] MED LIST changes: +AMLO5TAB2 PO; +CIPR-9 PO; -LURA20TA PO; +METR-1 PO; -TRAM50 PO
[2017-07-03 13:40] VITALS: BP 175/94; PULSE 96; RESP 18; TEMP 98.1; O2SAT 99
[2017-07-03] MEDS ORDERED: IBUP1TAB7 PO (16:13)
[2017-07-03] MEDS ORDERED: BACT800T5 PO (16:13)
--- NOTE | 2017-07-03 16:18 | PD ---
HPI Chief Complaint: Skin Problem Time Seen by Provider: 15:58 Travel History International Travel<30 days: No Contact w/Intl Traveler<30days: No Traveled to known affect area: No History of Present Illness HPI 52-year-old female presents to the emergency Department with complaint of a "crater" to her left upper inner thigh 10 days. Denies history of abscesses. This area started out as a little pimple 5 days after she was discharged here from [facility], and it then became hard and then opened up and drained 2 nights ago. She was admitted to [facility] for enteritis and this problem arose after discharge. Area is tender and painful. Denies fever, vomiting. Unknown tetanus status and declines tetanus update. Reports pain 02/20. Has tried ibuprofen and heating pad for symptomatic management. No primary care provider. History of hypertension and has not started taking medications. Allergies to penicillin. Has no other medical complaints. No other modifying factors or associated signs and symptoms. PFSH Past Medical History Arthritis: Yes Anxiety: Yes Depression: Yes Heart Rhythm Problems: No Cancer: No Cardiovascular Problems: No High Cholesterol: Yes Chest Pain: Yes Congestive Heart Failure: No Diabetes: No Endocrine: No Gastrointestinal Disorders: Yes (explotory lap) Genitourinary: No Musculoskeletal: No Neurologic: No Psychiatric: No Reproductive: No Respiratory: No Thyroid Disease: No ?: Not Menopausal: Yes : 0 Past Surgical History Gynecologic Surgery: Yes (LAPAROSCOPY) Joint Replacement: Yes (LT MONTRELL REPAIR. FACILIAL HERNIA REPAIR LT [facility]) Other Surgery: Yes Social History Alcohol Use: Yes (4 PACK/WEEK) Tobacco Use: Yes (1/2PPD) Substance Use: No Allergies-Medications (Allergen,Severity, Reaction): Coded Allergies: penicillin G (Unverified Allergy, Severe, 04/01/17) Reported Meds & Prescriptions Reported Meds & Active Scripts Active Tramadol (Tramadol HCl) 50 Mg Tab 50 Mg PO Q4H PRN Mupirocin Topical (Mupirocin) 2 % Oint 1 Applic TOPICAL BID Ibuprofen 800 Mg Tab 800 Mg PO Q6HR PRN Bactrim DS (Sulfamethoxazole-Trimethoprim) 800-160 Mg Tab 1 Tab PO BID 10 Days Cipro (Ciprofloxacin HCl) 500 Mg Tab 500 Mg PO BID Amlodipine (Amlodipine Besylate) 5 Mg Tab 5 Mg PO DAILY Flagyl (Metronidazole) 500 Mg Tab 500 Mg PO Q8H Reported Ibuprofen 600 Mg Tab 600 Mg PO Q6H PRN Review of Systems Except as stated in HPI: all other systems reviewed are Neg Physical Exam Narrative GENERAL: Well-nourished, well-developed female patient, in no acute distress; afebrile, nontoxic-appearing SKIN: There is an indurated area to the left inner/upper thigh which measures about 3.5cm x 1cm x 1cm deep cm in diameter. Area is open and with minimal purulent drainage noted. There is a zone of inflammation around it but no lymphangitis. HEAD: Atraumatic. Normocephalic. EYES: Pupils equal and round. No scleral icterus. No injection or drainage. ENT: Mucosa pink and moist. Airway patent. NECK: Trachea midline. CARDIOVASCULAR: Regular rate. RESPIRATORY: No accessory muscle use. GASTROINTESTINAL: Flat. MUSCULOSKELETAL: No obvious deformities. No clubbing. No cyanosis. No edema. NEUROLOGICAL: Awake and alert. Oriented 3. No obvious cranial nerve deficits. Motor grossly within normal limits. Normal speech. PSYCHIATRIC: Appropriate mood and affect; insight and judgment normal. Data Data Last Documented VS Vital Signs Date Time Temp Pulse Resp B/P (MAP) Pulse Ox O2 Delivery O2 Flow Rate FiO2 07/03/17 13:40 98.1 96 18 175/94 (121) 99 Room Air Orders Orders Wound Care (07/03/17 16:18) Ed Discharge Order (07/03/17 16:18) Wound Culture And Gram Stain (07/03/17 16:20) MDM Medical Decision Making Medical Screen Exam Complete: Yes Emergency Medical Condition: Yes Medical Record Reviewed: Yes Differential Diagnosis Abscess, cellulitis, wound Narrative Course 52-year-old female with an abscess of the left upper inner thigh that has drained and opened up. He is afebrile and nontoxic-appearing. Denies fever, vomiting. The abscess was packed with iodoform packing and the patient was instructed to return to the emergency department in 48 hours for packing removal and wound recheck. Wound culture pending. I offered to update the patient's tetanus and she declined. Bactrim, ibuprofen, tramadol, mupirocin topical ointment prescribed for home. Patient verbalized understanding and agreement and agrees with plan of care. Instructed patient to follow up with primary care provider. Patient verbalizes understanding and agreement with treatment plan. Patient is medically cleared and stable for discharge. Discussed reasons to return to the emergency department. Patient agrees with treatment plan. The patients vital signs are stable and the patient is stable for outpatient follow-up and treatment. Patient discharged home, stable and in no acute distress. Diagnosis Primary Impression: Abscess of left thigh Referrals: [facility] Primary Care Physician Patient Instructions: Abscess (ED), Abscess Follow-up (ED), General Instructions Additional Instructions: Complete full course of antibiotics Warm compresses to the affected area Topical antibiotic ointment as directed and as needed for wound care Keep area clean and dry and covered with a bandage Ibuprofen or Tylenol as directed and as needed for pain and inflammation Follow-up with primary care provider Return to the emergency department in 48 hours for wound recheck and packing removal Return to emergency department immediately with worsening of symptoms Med/Other Pt SpecificInfo: Prescription(s) given Scripts Tramadol (Tramadol) 50 Mg Tab 50 MG PO Q4H Y for PAIN, #10 TAB 0 Refills Prov: Winnie Hager 07/03/17 Mupirocin Topical (Mupirocin Topical) 2 % Oint 1 APPLIC TOPICAL BID for Mgmt Bacterial Infection, #1 TUBE 0 Refills Prov: Winnie Hager 07/03/17 Ibuprofen (Ibuprofen) 800 Mg Tab 800 MG PO Q6HR Y for PAIN, #30 TAB 0 Refills Prov: Winnie Hager 07/03/17 Sulfamethoxazole-Trimethoprim (Bactrim DS) 800-160 Mg Tab 1 TAB PO BID for Infection for 10 Days, #20 TAB 0 Refills Prov: Winnie Hager 07/03/17 Disposition: 01 DISCHARGE HOME Condition: Stable Winnie Hager Jul 03, 2017 16:18
[2017-07-03] MEDS ORDERED: MUPI2OIN TOPICAL (16:20)
[2017-07-03] MEDS ORDERED: TRAM50TA PO (16:36)
== END 2017-07-03 16:47 | disposition home or self-care (01) ==
LOC: NEPD 13:38
DX: L02.416 Cutaneous abscess of left lower limb (principal); F17.200 Nicotine dependence, unspecified, uncomplicated
CPT/HCPCS: 86403; 87070; 87186; 87205; 99283

== ENCOUNTER 2017-07-05 12:18 | Emergency (ER) | payer SELFPAY ==
[~2017-07-05] VITALS: Ht 167.6 cm; Wt 60.0 kg
[~2017-07-05 12:18] MED LIST changes: +BACT800T5 PO; +IBUP1TAB7 PO; +MUPI2OIN TOPICAL; +TRAM50TA PO
[2017-07-05 12:19] VITALS: BP 146/83; PULSE 79; RESP 14; TEMP 97.9; O2SAT 99
--- NOTE | 2017-07-05 12:58 | PD ---
HPI Chief Complaint: Injury Time Seen by Provider: 12:46 Travel History International Travel<30 days: No Contact w/Intl Traveler<30days: No Traveled to known affect area: No History of Present Illness HPI 52-year-old female presents to the emergency department for reevaluation of an abscess to her left posterior thigh. Patient was seen here 2 days ago and packing was placed. She was placed on Bactrim. Patient states she cannot see it does not know how it is doing. She states she did have something fall out of it earlier today. No fevers or chills. Current pain is 10/10, aching without radiation. Mild severity. PFSH Past Medical History Arthritis: Yes Anxiety: Yes Depression: Yes Heart Rhythm Problems: No Cancer: No Cardiovascular Problems: No High Cholesterol: Yes Chest Pain: Yes Congestive Heart Failure: No Diabetes: No Endocrine: No Gastrointestinal Disorders: Yes (explotory lap) Genitourinary: No Musculoskeletal: No Neurologic: No Psychiatric: No Reproductive: No Respiratory: No Thyroid Disease: No ?: Not Menopausal: Yes : 0 Past Surgical History Gynecologic Surgery: Yes (LAPAROSCOPY) Joint Replacement: Yes (LT MONTRELL REPAIR. FACILIAL HERNIA REPAIR LT [facility]) Other Surgery: Yes Social History Alcohol Use: Yes (4 PACK/WEEK) Tobacco Use: Yes (1/2PPD) Substance Use: No Allergies-Medications (Allergen,Severity, Reaction): Coded Allergies: penicillin G (Unverified Allergy, Severe, 04/01/17) Reported Meds & Prescriptions Reported Meds & Active Scripts Active Tramadol (Tramadol HCl) 50 Mg Tab 50 Mg PO Q4H PRN Mupirocin Topical (Mupirocin) 2 % Oint 1 Applic TOPICAL BID Ibuprofen 800 Mg Tab 800 Mg PO Q6HR PRN Bactrim DS (Sulfamethoxazole-Trimethoprim) 800-160 Mg Tab 1 Tab PO BID 10 Days Cipro (Ciprofloxacin HCl) 500 Mg Tab 500 Mg PO BID Amlodipine (Amlodipine Besylate) 5 Mg Tab 5 Mg PO DAILY Flagyl (Metronidazole) 500 Mg Tab 500 Mg PO Q8H Reported Ibuprofen 600 Mg Tab 600 Mg PO Q6H PRN Review of Systems Except as stated in HPI: all other systems reviewed are Neg Physical Exam Narrative GENERAL: Well-nourished, well-developed female patient, ambulatory. Afebrile. SKIN: Focused skin assessment warm/dry. Patient has abscess to left posterior thigh that has been incised and drained. The packing has already fallen out. No active drainage. Very mild surrounding erythema. No red streaks. HEAD: Normocephalic. Atraumatic. EYES: No scleral icterus. No injection or drainage. NECK: Supple, trachea midline. No JVD or lymphadenopathy. CARDIOVASCULAR: Regular rate and rhythm without murmurs, gallops, or rubs. RESPIRATORY: No accessory muscle use. MUSCULOSKELETAL: No cyanosis, or edema. Data Data Last Documented VS Vital Signs Date Time Temp Pulse Resp B/P (MAP) Pulse Ox O2 Delivery O2 Flow Rate FiO2 07/05/17 12:19 97.9 79 14 146/83 (104) 99 Room Air MDM Medical Decision Making Medical Screen Exam Complete: Yes Emergency Medical Condition: Yes Medical Record Reviewed: Yes Differential Diagnosis Abscess versus cellulitis versus failed outpatient treatment Narrative Course 52-year-old female presents to the emergency department for evaluation of an abscess to her left posterior thigh. Patient was seen 2 days ago for the same. Abscess was cleaned with normal saline. Packing has already fallen out. Overall, the abscess appears well healing. I checked the culture results and it is sensitive to Bactrim. She is to continue this and wound care. She verbalizes agreement and understanding. The patient was discharged in stable condition with instructions, including return instructions and follow up instructions. Diagnosis Primary Impression: Abscess Referrals: Primary Care Physician call for appointment Patient Instructions: Abscess Follow-up (ED), General Instructions Additional Instructions: Continue wound care. Continue antibiotic as directed until gone. Bacteria is sensitive to Bactrim so this is a good antibiotic to be on. Follow-up with your primary care physician. Return to the emergency department for any acute worsening of symptoms. Med/Other Pt SpecificInfo: No Change to Meds Disposition: 01 DISCHARGE HOME Condition: Stable Geena Ojeda JOSE CARLOS Jul 05, 2017 12:58
== END 2017-07-05 13:15 | disposition home or self-care (01) ==
LOC: NEPK 12:18
DX: L02.416 Cutaneous abscess of left lower limb (principal)
CPT/HCPCS: 99281